=== PATIENT | female | born 1950 | race Hispanic/Latino ===

== ENCOUNTER 2017-10-07 08:58 | Emergency (ER) | payer MEDICARE ==
[~2017-10-07 08:58] MED LIST: AEC81 PO; DICY20 PO; ESOM40CA PO; FEXO180T94 PO; LACT1CAP78 PO; OSPE60TA2 PO; PITA2TAB2 PO; amitiza PO
[2017-10-07 09:30] LABS: BASOPHILS % (AUTO) 2.4 % (0.0-5.0); EOSINOPHILS % (AUTO) 1.3 % (0.0-8.0); HEMATOCRIT 43.3 % (36-48); LYMPHOCYTES % (AUTO) 30.2 % (21.0-51.0); MEAN CORPUSCULAR HEMOGLOBIN 32.6 pg (27.0-33.0); MEAN CORPUSCULAR HGB CONC 34.9 g/dL (32.0-36.0); MEAN CORPUSCULAR VOLUME 93.3 fL (79-99); MONOCYTES % (AUTO) 6.8 % (3.0-13.0); NEUTROPHILS % (AUTO) 59.3 % (40.0-77.0); PLATELET COUNT (AUTO) 297 K/uL (130-400); RED BLOOD CELL COUNT(AUTO) 4.64 MIL/uL (4.00-5.50); RED CELL DISTRIBUTION WIDTH 13.1 % (11.0-15.5); WHITE BLOOD COUNT (AUTO) 8.1 K/uL (4.8-10.8)
[2017-10-07 09:37] LABS: APPEARANCE,URINE Clear (CLEAR); BILIRUBIN,URINE Negative (NEGATIVE); COLOR,URINE Yellow (YELLOW); GLUCOSE, URINE (UA) Negative (NEGATIVE); KETONES,URINE Negative (NEGATIVE); LEUKOCYTE ESTERASE ,URINE Negative (NEGATIVE); NITRATE,URINE Negative (NEGATIVE); OCCULT BLOOD,URINE Small (NEGATIVE); PROTEIN,URINE Negative (NEGATIVE); UROBILINOGEN,URINE 0.2 mg/dL (0.2-1.0)
[2017-10-07 09:51] LABS: CREATININE 0.6 mg/dL (0.5-1.5)
[2017-10-07 09:52] LABS: AMYLASE 54 U/L (25-115); LIPASE 124 U/L (114-286)
[2017-10-07 09:53] LABS: BACTERIA,URINE Few /HPF (None Seen); RBC,URINE 0-1 /HPF (0-1)
[2017-10-07 09:55] LABS: ALBUMIN 3.8 g/dL (3.5-5.0); BILIRUBIN,TOTAL 0.3 mg/dL (0.2-1.0); TOTAL PROTEIN, SERUM 7.7 g/dL (6.0-8.3)
[2017-10-07] MEDS ORDERED: KETOROLAC TROMETHAMINE 30MG/ML ONE (10:22)
[2017-10-07] MEDS ORDERED: SODIUM CHLORIDE 0.9% 500ML 500 ML IV ONE (10:22)
[2017-10-07] MEDS ORDERED: ORPHENADRINE CITRATE 30 MG/ML ML ONE (10:55)
[2017-10-07] MEDS ORDERED: LIDOCAINE 5% TOPICAL PATCH TP ONE (10:56)
== END 2017-10-07 12:10 | disposition home or self-care (01) ==
LOC: EDH 08:58
DX: M46.1 Sacroiliitis, not elsewhere classified (principal); E11.9 Type 2 diabetes mellitus without complications; Z88.6 Allergy status to analgesic agent; Z90.710 Acquired absence of both cervix and uterus; Z90.13 Acquired absence of bilateral breasts and nipples
CPT/HCPCS: 36415; 74176; 80053; 81001; 82150; 83690; 85025; 96374; 96375; 99285; J1885; J2360; J7040

== ENCOUNTER 2018-01-15 09:04 | Inpatient (IN) | payer MEDICARE ==
[~2018-01-15] VITALS: Ht 157.5 cm; Wt 68.0 kg
[2018-01-15] MEDS ORDERED: ONDANSETRON HCL 4 MG/2 ML VIAL ONE (09:18)
[2018-01-15] MEDS ORDERED: MORPHINE SULFATE 4 MG/1ML SYG ONE (09:19)
[2018-01-15] MEDS ORDERED: SODIUM CHLORIDE 0.9% 1000ML 1,000 ML IV ONE (09:19)
[2018-01-15 09:32] LABS: BASOPHILS % (AUTO) 1.3 % (0.0-5.0); EOSINOPHILS % (AUTO) 0.5 % (0.0-8.0); HEMATOCRIT 42.4 % (36-48); MEAN CORPUSCULAR HGB CONC 34.5 g/dL (32.0-36.0); MEAN CORPUSCULAR VOLUME 92.6 fL (79-99); MONOCYTES % (AUTO) 6.2 % (3.0-13.0); NUCLEATED RED BLOOD CELLS 0.1 % (0.0-0.19); PLATELET COUNT (AUTO) 307 K/uL (130-400); RED BLOOD CELL COUNT(AUTO) 4.58 MIL/uL (4.00-5.50); RED CELL DISTRIBUTION WIDTH 12.3 % (11.0-15.5); WHITE BLOOD COUNT (AUTO) 13.8 K/uL (4.8-10.8)
[2018-01-15 09:40] LABS: CREATININE 0.6 mg/dL (0.5-1.5); POTASSIUM 3.5 mmol/L (3.5-5.1)
[2018-01-15 09:44] LABS: ALBUMIN 3.6 g/dL (3.5-5.0); BILIRUBIN,TOTAL 0.4 mg/dL (0.2-1.0); TOTAL PROTEIN, SERUM 7.6 g/dL (6.0-8.3)
[2018-01-15 10:21] LABS: APPEARANCE,URINE Clear (CLEAR); BILIRUBIN,URINE Negative (NEGATIVE); COLOR,URINE Yellow (YELLOW); GLUCOSE, URINE (UA) Negative (NEGATIVE); KETONES,URINE Negative (NEGATIVE); LEUKOCYTE ESTERASE ,URINE Trace (NEGATIVE); NITRATE,URINE Negative (NEGATIVE); OCCULT BLOOD,URINE Nonhemolyzed Trace (NEGATIVE); PROTEIN,URINE Negative (NEGATIVE); UROBILINOGEN,URINE 0.2 mg/dL (0.2-1.0)
[2018-01-15 10:29] LABS: BACTERIA,URINE Few /HPF (None Seen); SQUAMOUS EPITHELIAL CELL,UR Many /HPF (0-2)
[2018-01-15 10:30] LABS: RBC,URINE 0-1 /HPF (0-1)
[2018-01-15] MEDS ORDERED: IOHEXOL-350 75 ML VIAL IV ONE (10:30)
[2018-01-15 14:16] VITALS: BP 138/74
[2018-01-15] MEDS ORDERED: CIPR-245 PO (14:51)
[2018-01-15] MEDS ORDERED: PSYL1PAC11 PO (14:51)
[2018-01-15] MEDS ORDERED: METR500T4 PO (14:51)
[2018-01-15] MEDS ORDERED: METF-444 PO (14:51)
[2018-01-15] MEDS ORDERED: LOSA25TA16 PO (14:51)
[2018-01-15] MEDS ORDERED: [UNRECOGNIZED DRUG - OTHER] (14:51)
[2018-01-15] MEDS ORDERED: ERGO500014 PO (14:51)
[2018-01-15] MEDS ORDERED: LORA10TA7 PO (14:51)
[2018-01-15] MEDS ORDERED: RANI300T4 PO (14:51)
[2018-01-15 15:55] VITALS: BP 138/66
[2018-01-15] MEDS ORDERED: DEXTROSE 50%-WATER 50 ML DISP.SYRIN IV PRN (16:00)
[2018-01-15] MEDS ORDERED: GLUCAGON 1MG KIT 1 MG ML IM PRN (16:00)
[2018-01-15] MEDS ORDERED: MORPHINE SULFATE 2 MG/ML 1ML SYG IVP PRN (16:00)
[2018-01-15] MEDS ORDERED: ZOSYN 3.375GM+NS 50ML 50 ML IV SCH (16:00)
[2018-01-15] MEDS ORDERED: SODIUM CHLORIDE 0.9% 50 ML IV ONE (16:05)
[2018-01-15] MEDS: NS-20 MEQ KCL 1000ML 1,000 ML IV SCH (16:16)
[2018-01-15] MEDS ORDERED: HUMALOG PO SS1 SQ SCH (16:30)
[2018-01-15] MEDS: METRONIDAZOLE 500MG/100ML BAG 100 ML IVPB SCH (16:34)
[2018-01-15] MEDS: INSULIN LISPRO 100 UNIT/ML 3ML SQ SCH ×2 (17:58→23:29)
[2018-01-15 19:00] VITALS: BP 134/74
[2018-01-15] MEDS: ZOSYN 3.375GM+NS 50ML 50 ML IV SCH (20:54)
[2018-01-15] MEDS: FAMOTIDINE/PF 20 MG/2 ML VIAL IV SCH (20:55)
[2018-01-15 23:00] VITALS: BP 122/63
[2018-01-16 03:00] VITALS: BP 136/63
[2018-01-16 04:31] LABS: EOSINOPHILS % (AUTO) 0.6 % (0.0-8.0); HEMATOCRIT 38.7 % (36-48); LYMPHOCYTES % (AUTO) 26.4 % (21.0-51.0); MEAN CORPUSCULAR HEMOGLOBIN 30.7 pg (27.0-33.0); MEAN CORPUSCULAR HGB CONC 33.3 g/dL (32.0-36.0); MEAN CORPUSCULAR VOLUME 92.2 fL (79-99); MONOCYTES % (AUTO) 8.3 % (3.0-13.0); NEUTROPHILS % (AUTO) 63.7 % (40.0-77.0); PLATELET COUNT (AUTO) 265 K/uL (130-400); RED BLOOD CELL COUNT(AUTO) 4.19 MIL/uL (4.00-5.50); RED CELL DISTRIBUTION WIDTH 12.5 % (11.0-15.5); WHITE BLOOD COUNT (AUTO) 10.4 K/uL (4.8-10.8)
[2018-01-16 04:54] LABS: CREATININE 0.5 mg/dL (0.5-1.5); POTASSIUM 5.3 mmol/L (3.5-5.1)
[2018-01-16] MEDS: METRONIDAZOLE 500MG/100ML BAG 100 ML IVPB SCH ×3 (04:57→17:35)
[2018-01-16] MEDS: ZOSYN 3.375GM+NS 50ML 50 ML IV SCH ×3 (04:57→20:53)
[2018-01-16] MEDS: NS-20 MEQ KCL 1000ML 1,000 ML IV SCH (05:20)
[2018-01-16] MEDS: INSULIN LISPRO 100 UNIT/ML 3ML SQ SCH ×4 (05:46→23:39)
[2018-01-16 08:16] VITALS: BP 128/72
[2018-01-16] MEDS: FAMOTIDINE/PF 20 MG/2 ML VIAL IV SCH ×2 (10:31→20:53)
[2018-01-16 11:54] VITALS: BP 133/70
[2018-01-16 15:55] VITALS: BP 131/71
[2018-01-16 19:00] VITALS: BP 150/71
[2018-01-16] MEDS ORDERED: LACTULOSE 20 GM/30 ML UDCUP PO ONE (21:30)
[2018-01-16 23:00] VITALS: BP 127/75
[2018-01-17] MEDS: METRONIDAZOLE 500MG/100ML BAG 100 ML IVPB SCH ×3 (00:55→18:28)
[2018-01-17 03:00] VITALS: BP 110/53
[2018-01-17] MEDS: ZOSYN 3.375GM+NS 50ML 50 ML IV SCH ×3 (04:55→21:00)
[2018-01-17] MEDS: INSULIN LISPRO 100 UNIT/ML 3ML SQ SCH ×4 (06:00→22:05)
[2018-01-17 07:00] VITALS: BP 130/73
[2018-01-17] MEDS: FAMOTIDINE/PF 20 MG/2 ML VIAL IV SCH ×2 (09:07→22:06)
[2018-01-17 11:00] VITALS: BP 126/72
[2018-01-17 16:01] VITALS: BP 151/75
[2018-01-17 20:00] VITALS: BP 148/75
[2018-01-18] VITALS: BP 122/70
[2018-01-18] MEDS: METRONIDAZOLE 500MG/100ML BAG 100 ML IVPB SCH ×3 (01:21→17:53)
[2018-01-18 04:00] VITALS: BP 110/63
[2018-01-18 04:34] LABS: HEMATOCRIT 38.9 % (36-48); MEAN CORPUSCULAR HEMOGLOBIN 30.9 pg (27.0-33.0); MEAN CORPUSCULAR HGB CONC 33.5 g/dL (32.0-36.0); MEAN CORPUSCULAR VOLUME 92.4 fL (79-99); PLATELET COUNT (AUTO) 265 K/uL (130-400); RED BLOOD CELL COUNT(AUTO) 4.21 MIL/uL (4.00-5.50); RED CELL DISTRIBUTION WIDTH 12.5 % (11.0-15.5); WHITE BLOOD COUNT (AUTO) 9.2 K/uL (4.8-10.8)
[2018-01-18 04:47] LABS: BAND NEUTROPHILS % (MANUAL) 6 % (0-2); EOSINOPHILS % (MANUAL) 2 % (1-6); LYMPHOCYTES % (MANUAL) 30 % (22-44); MAN.DIFF COMMENT-IMPRESSION MANUAL DIFFERENTIAL; MONOCYTES % (MANUAL) 5 % (2-9); SEGMENTED NEUTROPHILS % 57 % (40-70)
[2018-01-18 04:48] LABS: PLATELET MORPHOLOGY COMMENT ADEQUATE
[2018-01-18 04:55] LABS: ALBUMIN 3.1 g/dL (3.5-5.0); BILIRUBIN,TOTAL 0.4 mg/dL (0.2-1.0); CREATININE 0.6 mg/dL (0.5-1.5); MAGNESIUM 1.9 mg/dL (1.80-2.40); POTASSIUM 3.4 mmol/L (3.5-5.1); TOTAL PROTEIN, SERUM 6.5 g/dL (6.0-8.3)
[2018-01-18] MEDS ORDERED: SODIUM CHLORIDE 0.9% 50 ML IV ONE (04:56)
[2018-01-18] MEDS: ZOSYN 3.375GM+NS 50ML 50 ML IV SCH ×3 (05:06→21:40)
[2018-01-18] MEDS: INSULIN LISPRO 100 UNIT/ML 3ML SQ SCH ×3 (06:00→17:54)
[2018-01-18 07:00] VITALS: BP 119/70
[2018-01-18] MEDS ORDERED: DIATR MEGLU/DIATRIZOATE SODIUM 30 ML BOTTLE ONE (07:37)
[2018-01-18] MEDS: LACTULOSE 20 GM/30 ML UDCUP PO SCH ×2 (09:00→21:40)
[2018-01-18] MEDS: FAMOTIDINE/PF 20 MG/2 ML VIAL IV SCH ×2 (09:12→21:40)
[2018-01-18] MEDS ORDERED: IOHEXOL-350 75 ML VIAL IV ONE (10:08)
[2018-01-18 11:00] VITALS: BP 124/80
[2018-01-18 16:00] VITALS: BP 129/75
[2018-01-18 20:00] VITALS: BP 116/66
[2018-01-19] VITALS: BP 122/57
[2018-01-19] MEDS: METRONIDAZOLE 500MG/100ML BAG 100 ML IVPB SCH (01:06)
[2018-01-19 04:00] VITALS: BP 129/68
[2018-01-19 04:34] LABS: HEMATOCRIT 39.5 % (36-48); MEAN CORPUSCULAR HEMOGLOBIN 32.2 pg (27.0-33.0); MEAN CORPUSCULAR HGB CONC 34.6 g/dL (32.0-36.0); MEAN CORPUSCULAR VOLUME 93.2 fL (79-99); PLATELET COUNT (AUTO) 324 K/uL (130-400); RED BLOOD CELL COUNT(AUTO) 4.24 MIL/uL (4.00-5.50); RED CELL DISTRIBUTION WIDTH 12.3 % (11.0-15.5); WHITE BLOOD COUNT (AUTO) 8.8 K/uL (4.8-10.8)
[2018-01-19 04:49] LABS: CREATININE 0.8 mg/dL (0.5-1.5); MAGNESIUM 1.8 mg/dL (1.80-2.40); POTASSIUM 3.7 mmol/L (3.5-5.1)
[2018-01-19] MEDS: ZOSYN 3.375GM+NS 50ML 50 ML IV SCH (05:07)
[2018-01-19] MEDS ORDERED: INSULIN LISPRO 100 UNIT/ML 3ML SQ SCH (07:30)
[2018-01-19 08:00] VITALS: BP 125/70
[2018-01-19] MEDS: FAMOTIDINE/PF 20 MG/2 ML VIAL IV SCH (09:14)
[2018-01-19] MEDS: LACTULOSE 20 GM/30 ML UDCUP PO SCH (09:14)
== END 2018-01-19 12:44 | disposition home or self-care (01) | DRG 392 ==
LOC: EDH 09:04 → OBSVTOIN 13:20 → EDHIP 13:20 → 3AH 14:12
PROVIDERS: ADMIT Family Medicine; ATTEND Family Medicine
DX: K57.32 Diverticulitis of large intestine without perforation or abscess without bleeding (principal); K21.9 Gastro-esophageal reflux disease without esophagitis; K58.9 Irritable bowel syndrome, unspecified; J30.9 Allergic rhinitis, unspecified; E55.9 Vitamin D deficiency, unspecified; M19.90 Unspecified osteoarthritis, unspecified site; Z85.3 Personal history of malignant neoplasm of breast; Z90.13 Acquired absence of bilateral breasts and nipples; D72.829 Elevated white blood cell count, unspecified; E11.9 Type 2 diabetes mellitus without complications; E78.5 Hyperlipidemia, unspecified; E87.6 Hypokalemia; Z23 Encounter for immunization; Z90.49 Acquired absence of other specified parts of digestive tract
CPT/HCPCS: 36415; 74177; 74178; 80048; 80053; 81001; 82948; 83690; 83735; 85025; 85027; J2270; J2405; J2543; J3480; J3490; J7030; Q2038; Q9963; Q9967

== ENCOUNTER → 2018-06-06 | Outpatient (CLI) | payer MEDICARE ==
[~2018-06-06] MED LIST changes: +CIPR-245 PO; -DICY20 PO; +ERGO500014 PO; -ESOM40CA PO; -FEXO180T94 PO; -LACT1CAP78 PO; +LORA10TA7 PO; +LOSA25TA41 PO; +METF-444 PO; +METR-172 PO; +PSYL1PAC11 PO; +RANI300T4 PO; +[UNRECOGNIZED DRUG - OTHER]
== END | disposition home or self-care (01) ==
LOC: OIH 12:40
PROVIDERS: ATTEND Internal Medicine
DX: M19.072 Primary osteoarthritis, left ankle and foot (principal); M19.071 Primary osteoarthritis, right ankle and foot; M77.32 Calcaneal spur, left foot; M77.31 Calcaneal spur, right foot; M19.042 Primary osteoarthritis, left hand; M19.041 Primary osteoarthritis, right hand
CPT/HCPCS: 73130; 73630

== ENCOUNTER 2019-05-06 13:59 | Emergency (ER) | payer MEDICARE ==
[~2019-05-06 13:59] MED LIST changes: +BISA5TAB12 PO; +CEFD300C3 PO; -CIPR-245 PO; +CYCL30DR OP; +LEVO5TAB13 PO; -LORA10TA7 PO; -LOSA25TA41 PO; -METF-444 PO; -METR-172 PO; +OMEP40CA13 PO; -PSYL1PAC11 PO; -RANI300T4 PO
[2019-05-06] MEDS ORDERED: ACETAMINOPHEN 325 MG TAB ONE (14:39)
[2019-05-06] MEDS ORDERED: DIAZEPAM 5 MG TABLET ONE (14:39)
== END 2019-05-06 16:10 | disposition home or self-care (01) ==
LOC: EDH 13:59
DX: S00.03XA Contusion of scalp, initial encounter (principal); E11.9 Type 2 diabetes mellitus without complications; Z88.5 Allergy status to narcotic agent; W11.XXXA Fall on and from ladder, initial encounter; Y93.89 Activity, other specified; Y92.89 Other specified places as the place of occurrence of the external cause; Y99.8 Other external cause status
CPT/HCPCS: 70450; 72125

== ENCOUNTER 2020-04-25 12:08 | Emergency (ER) | payer MEDICARE ==
[2020-04-25 12:51] LABS: BASOPHILS % (AUTO) 1.2 % (0.0-5.0); EOSINOPHILS % (AUTO) 1.8 % (0.0-8.0); HEMATOCRIT 41.4 % (36-48); LYMPHOCYTES % (AUTO) 32.9 % (21.0-51.0); MEAN CORPUSCULAR HEMOGLOBIN 31.2 pg (27.0-33.0); MEAN CORPUSCULAR HGB CONC 33.8 g/dL (32.0-36.0); MEAN CORPUSCULAR VOLUME 92.2 fL (79-99); MONOCYTES % (AUTO) 7.1 % (3.0-13.0); NEUTROPHILS % (AUTO) 56.7 % (40.0-77.0); PLATELET COUNT (AUTO) 306 K/uL (130-400); RED BLOOD CELL COUNT(AUTO) 4.49 MIL/uL (4.00-5.50); RED CELL DISTRIBUTION WIDTH 11.9 % (11.0-15.5); WHITE BLOOD COUNT (AUTO) 10.5 K/uL (4.8-10.8)
[2020-04-25 12:52] LABS: APPEARANCE,URINE Clear (CLEAR); BILIRUBIN,URINE Negative (NEGATIVE); COLOR,URINE Yellow (YELLOW); GLUCOSE, URINE (UA) Negative (NEGATIVE); KETONES,URINE Negative (NEGATIVE); LEUKOCYTE ESTERASE ,URINE Negative (NEGATIVE); NITRATE,URINE Negative (NEGATIVE); OCCULT BLOOD,URINE Negative (NEGATIVE); PROTEIN,URINE Negative (NEGATIVE); UROBILINOGEN,URINE 0.2 mg/dL (0.2-1.0)
[2020-04-25 13:00] LABS: ALBUMIN 3.8 g/dL (3.5-5.0); BILIRUBIN,TOTAL 0.3 mg/dL (0.2-1.0); CREATININE 0.6 mg/dL (0.5-1.5); POTASSIUM 3.7 mmol/L (3.5-5.1); TOTAL PROTEIN, SERUM 7.5 g/dL (6.0-8.3)
[2020-04-25] MEDS ORDERED: HYDROCODONE/ACETAMINOPHEN 10/325 MG TAB ONE (14:40)
== END 2020-04-25 15:03 | disposition home or self-care (01) ==
LOC: EDH 12:08
DX: K57.30 Diverticulosis of large intestine without perforation or abscess without bleeding (principal); R33.9 Retention of urine, unspecified; N35.92 Unspecified urethral stricture, female; E11.9 Type 2 diabetes mellitus without complications; Z88.6 Allergy status to analgesic agent; Z90.710 Acquired absence of both cervix and uterus; Z90.49 Acquired absence of other specified parts of digestive tract; Z87.442 Personal history of urinary calculi
CPT/HCPCS: 36415; 74176; 80053; 81003; 83690; 85025

== ENCOUNTER → 2020-09-04 | Outpatient (CLI) | payer MEDICARE | END | disposition home or self-care (01) | LOC: RAH 14:01 | PROVIDERS: ATTEND Internal Medicine | DX: N39.0 Urinary tract infection, site not specified (principal); K57.30 Diverticulosis of large intestine without perforation or abscess without bleeding; I70.0 Atherosclerosis of aorta; Z90.49 Acquired absence of other specified parts of digestive tract | CPT/HCPCS: 74176 ==

== ENCOUNTER → 2022-12-08 | Outpatient (CLI) | payer MEDICARE ==
[~2022-12-08] MED LIST changes: +BISA-151 PO; -BISA5TAB12 PO; -OMEP40CA13 PO; +OMEP40CA21 PO
== END | disposition home or self-care (01) ==
LOC: RAH 11:32
PROVIDERS: ATTEND Physical Medicine & Rehabilitation
DX: M41.85 Other forms of scoliosis, thoracolumbar region (principal)
CPT/HCPCS: 72082